=== PATIENT | male | born 1990 | race Caucasian/White ===

== ENCOUNTER 2024-01-05 18:33 | Emergency (ER) | payer OTHER, SELFPAY ==
[2024-01-05 18:40] VITALS: BP 134/71; PULSE 118; TEMP 36.8; O2SAT 97; BMI 31.8
--- NOTE | 2024-01-05 19:25 | ECG_ITS ---
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
[2024-01-05 19:45] LABS: Basophils Percent Auto 0.6 % (0.2-2.0); Eosinophils Absolute Auto 0.1 10^3/uL (0.0-0.7); Eosinophils Percent Auto 1.3 % (0.9-7.0); Hematocrit 38.7 % (42.0-54.0); Immature Granulocytes Abs Auto 0.02 10^3/uL (0.00-0.03); Immature Granulocytes Pct Auto 0.3 % (0.0-0.5); Lymphocytes Absolute Auto 1.4 10^3/uL (1.2-3.8); Lymphocytes Percent Auto 20.1 % (20.5-60.0); Mean Corpuscular HGB Conc 33.6 g/dL (29.9-35.2); Mean Corpuscular Hemoglobin 32.8 pg (25.9-34.0); Mean Corpuscular Volume 97.7 fL (80.0-94.0); Mean Platelet Volume 10.5 fL (9.5-13.5); Monocytes Absolute Auto 0.4 10^3/uL (0.3-0.8); Monocytes Percent Auto 5.9 % (1.7-12.0); Neutrophils Absolute Auto 5.1 10^3/uL (1.4-6.5); Neutrophils Percent Auto 71.8 % (43.0-75.0); Platelet Count 171 10^3/uL (150-450); Red Blood Count 3.96 10^6/uL (4.70-6.10); Red Cell Distribution Width 17.2 % (11.0-15.0); White Blood Count 7.1 10^3/uL (4.0-11.0)
[2024-01-05 19:48] LABS: Bilirubin Urine SMALL (NEGATIVE); Blood Urine NEGATIVE (NEGATIVE); Clarity Urine CLEAR (CLEAR); Color Urine DK. ORANGE (YELLOW); Glucose Urine UA NEGATIVE (NEGATIVE); Ketones Urine TRACE mg/dL (NEGATIVE); Leukocyte Esterase Urine NEGATIVE (NEGATIVE); Nitrite Urine NEGATIVE (NEGATIVE); Protein Urine TRACE mg/dL (NEG/TRACE); Specific Gravity Urine >=1.030 (1.005-1.025)
[2024-01-05 19:49] LABS: Urine Microscopic Indicated NO
--- NOTE | 2024-01-05 19:49 | ED.GENADUL1 ---
HPI HPI - General Adult General Chief complaint: Extremity Problem, Nontraumatic Stated complaint: Lower Extremity Swelling Time Seen by Provider: 01/05/24 18:57 Source: patient and friend Mode of arrival: walk-in Limitations: no limitations History of Present Illness HPI narrative: 33-year-old male to the emergency department chief complaint of bilateral lower extremity swelling. He reports been worsening over the last 4 to 6 weeks. 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 He reports he has been trying to elevate his legs at night but it does not seem to be making a difference. He was at the [facility] for this complaint 3 days ago and had a battery of labs. He reports that they ruled out blood clot and told him to use Willem wraps and elevate his legs. Patient reports this has not been effective. He denies any chest pain or shortness of breath. Has no major medical problems besides hypertension for which she takes lisinopril. No recent illness. No history of liver or kidney disease. Related Data Home Medications ?Medication ?Instructions ?Recorded ?Confirmed buspirone 7.5 mg tablet 7.5 mg PO BID 01/05/24 01/05/24 citalopram 40 mg tablet 40 mg PO DAILY 01/05/24 01/05/24 clonazepam 0.5 mg tablet 0.5 mg PO TID 01/05/24 01/05/24 hydroxyzine pamoate 25 mg capsule 25 mg PO .QHS PRN anxiety 01/05/24 01/05/24 lisinopril 20 mg tablet 20 mg PO DAILY 01/05/24 01/05/24 Previous Rx's ?Medication ?Instructions ?Recorded furosemide 20 mg tablet (Lasix) 20 mg PO DAILY 5 days #5 tabs 01/05/24 Allergies Allergy/AdvReac Type Severity Reaction Status Date / Time No Known Drug Allergies Allergy Verified 01/05/24 18:45 Opioid HPI Opioid Management Most Recent Opioid Data: No Data to Display Review of Systems ROS Status of ROS 10 or more systems reviewed and unremarkable except as noted in history and below Exam Narrative Exam Narrative: VITALS: I have reviewed the triage vital signs. GENERAL: Well developed, well appearing adult in no acute distress. NEURO: Alert and oriented. Moves all extremities. Face is symmetric and expressive. EYES: PERRL. No scleral icterus or conjunctival injection. No discharge. HENT: Normocephalic, atraumatic. Hearing is grossly intact. Nares grossly patent and without discharge. Mucous membranes moist. NECK: No JVD. Patient moves neck without restriction. CARDIO: Rhythm regular. Normal rate. No murmur, rub, or gallop. Pulses equal bilaterally in the upper and lower extremity. 1+ pitting edema to the bilateral lower extremities, worse at the ankle. PULM: Lungs clear to auscultation in all [place]. No wheezes, rales, or rhonchi. No conversational dyspnea. No splinting, stridor, or accessory muscle use. GI/: Abdomen is soft and non-tender. Normoactive bowel sounds. EXTREMITIES: Symmetric muscle bulk. No joint swelling. No clubbing, cyanosis, or deformity. SKIN: Warm and dry. Normal turgor. No rash or lesions appreciated. PSYCH: Mood, affect, and interaction is appropriate to the setting. Constitutional Vital Signs, click to edit/add: Last Vital Signs Temp 98.3 F 01/05/24 18:40 Pulse 118 H 01/05/24 18:40 Resp 18 01/05/24 18:40 BP 134/71 01/05/24 18:40 Pulse Ox 97 01/05/24 18:40 O2 Del Method Room Air 01/05/24 18:40 Course Vital Signs Vital signs: Vital Signs Temperature 98.3 F 01/05/24 18:40 Pulse Rate 118 H 01/05/24 18:40 Respiratory Rate 18 01/05/24 18:40 Blood Pressure 134/71 01/05/24 18:40 Pulse Oximetry 97 01/05/24 18:40 Oxygen Delivery Method Room Air 01/05/24 18:40 Temperature 98.3 F 01/05/24 18:40 Pulse Rate 118 H 01/05/24 18:40 Respiratory Rate 18 01/05/24 18:40 Blood Pressure 134/71 01/05/24 18:40 Pulse Oximetry 97 01/05/24 18:40 Oxygen Delivery Method Room Air 01/05/24 18:40 Medical Decision Making MDM Narrative Medical decision making narrative: Well-appearing 33-year-old male to the emergency department with chief complaint of bilateral lower extremity edema. Vital stable, the patient is afebrile. He has 1+ pitting edema about the ankles extending to the cast and tapering off to the limit. No erythema or warmth. Limbs are neurovascularly intact. History is likely consistent with heat edema/dependent edema. Will order some basic labs, assess that is not heart failure. Patient agrees with this plan. He reports that DVT and liver disease were ruled out at [facility]. CBC without major abnormality. Normal renal function. No protein in the urine. Troponin negative. BNP is in the indeterminate setting, likely from his volume overloaded state, not convincing for acute heart failure. Duplex prescription is given so he may obtain this on Sunday to give reassurance. He has upcoming follow-up with his PCP on for this. I recommended compression stockings to be worn while at work. He be given a few days Lasix doses to get the extra volume off. Elevate his legs when not at work. Return precautions were discussed. All questions were answered. Patient was very pleased with this plan. Patient was discharged home. Medical Records Medical records reviewed: Yes I reviewed the patient's medical records Lab Data Lab results reviewed: Yes I reviewed the patient's lab results Labs: Lab Results 01/05/24 01/05/24 Range/Units 18:55 19:35 WBC 7.1 (4.0-11.0) 10^3/uL RBC 3.96 L (4.70-6.10) 10^6/uL Hgb 13.0 L (14.0-18.0) g/dL Hct 38.7 L (42.0-54.0) % MCV 97.7 H (80.0-94.0) fL MCH 32.8 (25.9-34.0) pg MCHC 33.6 (29.9-35.2) g/dL RDW 17.2 H (11.0-15.0) % Plt Count 171 (150-450) 10^3/uL MPV 10.5 (9.5-13.5) fL Neut % (Auto) 71.8 (43.0-75.0) % Lymph % (Auto) 20.1 L (20.5-60.0) % [place] % (Auto) 5.9 (1.7-12.0) % Eos % (Auto) 1.3 (0.9-7.0) % Baso % (Auto) 0.6 (0.2-2.0) % Neut # (Auto) 5.1 (1.4-6.5) 10^3/uL Lymph # (Auto) 1.4 (1.2-3.8) 10^3/uL [place] # (Auto) 0.4 (0.3-0.8) 10^3/uL Eos # (Auto) 0.1 (0.0-0.7) 10^3/uL Baso # (Auto) 0.0 (0.0-0.1) 10^3/uL Abs Immat Gran (auto) 0.02 (0.00-0.03) 10^3/uL Imm/Tot Granulo (auto) 0.3 (0.0-0.5) % Sodium 140 (136-145) mmol/L Potassium 4.0 (3.5-5.1) mmol/L Chloride 105 (98-107) mmol/L Carbon Dioxide 25.6 (21.0-32.0) mmol/L Anion Gap 13.4 BUN 5.0 L (7.0-18.0) mg/dL Creatinine 1.17 (0.70-1.30) mg/dL Est GFR ( Amer) >60 (>=60) Est GFR (Non-Af Amer) >60 (>=60) BUN/Creatinine Ratio 4.3 Glucose 83 (74-106) mg/dL Calcium 8.3 L (8.5-10.1) mg/dL Troponin I High Sens 8.8 (4.0-76.1) pg/mL NT-Pro-B Natriuret Pep 576.0 H (<=450.0) pg/mL Urine Color Dk. orange (YELLOW) Urine Clarity Clear (CLEAR) Urine pH 6.0 (5.0-9.0) Ur Specific [place] >=1.030 A (1.005-1.025) Urine Protein Trace (NEG/TRACE) mg/dL Urine Glucose (UA) Negative (NEGATIVE) mg/dL Urine Ketones Trace A (NEGATIVE) mg/dL Urine Occult Blood Negative (NEGATIVE) Urine Nitrite Negative (NEGATIVE) Urine Bilirubin Small A (NEGATIVE) Urine Urobilinogen 2.0 A (0.2-1.0) EU/dL Ur Leukocyte Esterase Negative (NEGATIVE) ECG Data Attestation: I personally reviewed and interpreted this ECG as follows: (Sinus tachycardia. No STEMI. Normal QTc.) Discharge Plan Discharge Stand Alone Forms: Work/School Release, Portal Instructions Chief Complaint: Extremity Problem, Nontraumatic Clinical Impression: Edema Patient Disposition: Home, Self-Care Time of Disposition Decision: 20:23 Condition: Good Mode of Transportation: Private Vehicle Prescriptions / Home Meds: New furosemide [Lasix] 20 mg tablet 20 mg PO DAILY 5 Days Qty: 5 0RF No Action clonazepam 0.5 mg tablet 0.5 mg PO TID buspirone 7.5 mg tablet 7.5 mg PO BID citalopram 40 mg tablet 40 mg PO DAILY lisinopril 20 mg tablet 20 mg PO DAILY hydroxyzine pamoate 25 mg capsule 25 mg PO .QHS PRN (Reason: anxiety) Print Language: Urdu Instructions: Edema (ED) Additional Instructions: Call the office of your primary care doctor to arrange for follow-up within the above-stated timeframe. Your ED visit was focused on your acute issue and does not replace primary care. You should review your labs, imaging, and diagnoses from this ED visit with your primary care physician. There may be non-emergent/ incidental findings that need further evaluation. You should review your vital signs including blood pressure with your PCP. If you were prescribed medications you should discuss possible side-effects and drug interactions with your pharmacist. Call 911 or go to the nearest Emergency Department if you develop any new or worsening symptoms. Seek immediate medical attention if you develop: worsening shortness of breath, difficulty breathing, chest pain, nausea, vomiting, weakness, numbness, tingling, excessive sweating, loss of motion in your arms or legs, or any new or worsening symptoms. Wear compression stockings. Take Lasix as prescribed, this is a diuretic and will make you urinate some extra fluid. Referrals: RUSSEL GÓMEZ [Primary Care Provider] - 1 week
[2024-01-05 20:08] LABS: Anion Gap 13.4; BUN Creatinine Ratio 4.3; Calcium 8.3 mg/dL (8.5-10.1); Carbon Dioxide 25.6 mmol/L (21.0-32.0); Chloride 105 mmol/L (98-107); Estimated GFR (African America >60 (>=60); Estimated GFR (Non-African Ame >60 (>=60); Glucose 83 mg/dL (74-106); Sodium 140 mmol/L (136-145); Troponin I High Sensitivity 8.8 pg/mL (4.0-76.1)
== END 2024-01-05 20:45 | disposition home or self-care (01) ==
PROVIDERS: Emergency Provider Student in an Organized Health Care Education/Training Program
DX: R60.0 Localized edema (principal); I10 Essential (primary) hypertension
CPT/HCPCS: 36415; 80048; 81003; 83880; 84484; 85025; 93005; 99285

== ENCOUNTER 2024-01-07 14:04 | Outpatient (OUT) | payer OTHER, SELFPAY ==
--- NOTE | 2024-01-07 14:13 | US_ITS ---
The [place] [address] Patient Name: KYRA EDWARDS MRN: [id number] date: 1990 Sex: M Assigned Patient Location: US Current Patient Location: US Accession/Order Number: [id number] Exam Date: 01/07/2024 14:15 Report Date: 01/07/2024 15:59 At the request of: MAEVE GODOY Procedure: US venous doppler LE BI CLINICAL DATA: Leg swelling for one week PROCEDURE: Bilateral lower extremity venous duplex ultrasound TECHNIQUE: Rubalcava-scale, color flow, and waveform spectral analysis was performed of the bilateral lower extremities. FINDINGS: The bilateral common femoral, profunda femoral, femoral, and popliteal veins were compressible. The saphenous veins were compressible. No venous thrombosis was seen. The veins fill with color Doppler. Augmentation was normal. Edema was noted. US/US venous doppler LE BI IMPRESSION: 1. No acute lower extremity deep venous thrombosis. 2. No superficial venous thrombosis. Electronically authenticated by: Olena ORTEGA Date: 01/07/2024 15:59
== END 2024-01-07 14:05 | disposition home or self-care (01) ==
LOC: US 14:08
PROVIDERS: Visit Provider Student in an Organized Health Care Education/Training Program
DX: R60.9 Edema, unspecified (principal)
CPT/HCPCS: 93970